=== PATIENT | male | born 1955 | race African-American/Black ===

== ENCOUNTER 2024-07-29 09:24 | Inpatient (IN) | payer OTHER, BC ==
[2024-07-29] MEDS: SODIUM CHLORIDE 0.9% 500 ML INFUS.BAG IV ONE (11:10)
[2024-07-29 11:22] LABS: HEMATOCRIT 35.1 % (35.4-49); MCH 32.9 pg (25.7-33.7); MCHC 34.3 g/dl (32.0-35.9); MEAN CELL VOLUME 95.9 fl (80-96); PLATELET COUNT 232 10^3/uL (134-434); RBC 3.67 M/mm3 (4.00-5.60); RDW 14.4 % (11.9-15.9); WHITE BLOOD COUNT 8.3 K/mm3 (4.0-10.0)
[2024-07-29 11:44] LABS: CHLORIDE 95 mmol/L (98-107); POTASSIUM 5.2 mmol/L (3.5-5.1); SODIUM 134 mmol/L (136-145)
[2024-07-29 11:47] LABS: ALBUMIN 2.8 g/dl (3.4-5.0); ANION GAP 9 mmol/L (4-13); BLOOD UREA NITROGEN 44.4 mg/dL (7-18); CO2 31 mmol/L (21-32); GLUCOSE,RANDOM 105 mg/dL (74-106); MAGNESIUM 2.3 mg/dL (1.8-2.4)
[2024-07-29 11:50] LABS: SGOT/AST 20 U/L (15-37); SGPT/ALT 30 U/L (13-61)
[2024-07-29 11:51] LABS: BILIRUBIN,TOTAL 0.3 mg/dL (0.2-1)
[2024-07-29 11:53] LABS: ALK PHOS 70 U/L (45-117)
[2024-07-29 12:27] LABS: CREATININE 9.8 mg/dL (0.55-1.3)
[2024-07-29 12:29] LABS: CALCIUM 14.4 mg/dL (8.5-10.1)
[2024-07-29 13:02] LABS: ANISOCYTOSIS 0; MACROCYTOSIS 0
[2024-07-29] MEDS: PANTOPRAZOLE SODIUM 40 MG VIAL IVPUSH SCH (14:15)
[2024-07-29] MEDS: SODIUM CHLORIDE 1,000 ML IV SCH (14:17)
[2024-07-29] MEDS: CALCITONIN - SALMON SYNTHETIC 400 UNIT/2 ML VIAL IM SCH (14:19)
[2024-07-29] MEDS: SODIUM ZIRCONIUM CYCLOSILICATE (LOKELMA) 5 GM PACKET PO SCH (17:25)
[2024-07-29] MEDS: DEXAMETHASONE SOD PHOSPHATE 10 MG/1 ML VIAL IVPB ONE (17:51)
[2024-07-29 18:19] LABS: EPI CELLS 4 /uL (0-25.1); HYALINE CASTS 1 /uL (0-3.1); URINE APPEARANCE CLEAR; URINE BACTERIA 4 /uL (0-1359); URINE BILIRUBIN NEGATIVE (NEGATIVE); URINE COLOR YELLOW; URINE GLUCOSE (UA) NEGATIVE (NEGATIVE); URINE KETONE NEGATIVE (NEGATIVE); URINE LEUK ESTERASE NEGATIVE (NEGATIVE); URINE NITRITE NEGATIVE (NEGATIVE); URINE PROTEIN NEGATIVE (NEGATIVE); URINE RBC 18 /uL (0-23.9); URINE UROBILINOGEN 0.2 mg/dL (0.2-1.0); URINE WBC 17 /uL (0-25.8)
[2024-07-30] MEDS: predniSONE 20 MG TABLET (UD) PO SCH (09:54)
[2024-07-30 11:24] LABS: HEMATOCRIT 34.1 % (35.4-49); HEMOGLOBIN 11.6 GM/dL (11.7-16.9); MCHC 33.9 g/dl (32.0-35.9); MEAN CELL VOLUME 97.3 fl (80-96); MEAN PLT VOLUME 8.2 fl (7.5-11.1); PLATELET COUNT 225 10^3/uL (134-434); RBC 3.51 M/mm3 (4.00-5.60); RDW 14.1 % (11.9-15.9); WHITE BLOOD COUNT 7.5 K/mm3 (4.0-10.0)
[2024-07-30 11:51] LABS: CHLORIDE 100 mmol/L (98-107); POTASSIUM 4.8 mmol/L (3.5-5.1); SODIUM 136 mmol/L (136-145)
[2024-07-30 11:54] LABS: ALBUMIN 2.5 g/dl (3.4-5.0); ANION GAP 13 mmol/L (4-13); BLOOD UREA NITROGEN 47.6 mg/dL (7-18); CO2 23 mmol/L (21-32); GLUCOSE,RANDOM 121 mg/dL (74-106)
[2024-07-30 11:56] LABS: CALCIUM 11.7 mg/dL (8.5-10.1)
[2024-07-30 11:57] LABS: BILIRUBIN,TOTAL 0.3 mg/dL (0.2-1); SGOT/AST 19 U/L (15-37); SGPT/ALT 28 U/L (13-61)
[2024-07-30 11:59] LABS: ALK PHOS 64 U/L (45-117); TOT PROT 9.2 g/dl (6.4-8.2)
[2024-07-30] MEDS: CYCLOPHOSPHAMIDE 50 MG CAPSULE PO ONE (17:58)
[2024-07-30] MEDS: BORTEZOMIB 2.5 MG/ML SUB-Q INJECTION SQ ONE (17:59)
[2024-07-30] MEDS: HEPARIN NA (PORCINE) 5,000 UNITS/ML 1ML VIAL SQ SCH (22:05)
[2024-07-31 08:07] LABS: PARATHYROID HORM INTACT 34 pg/mL (15-65)
[2024-07-31 08:22] LABS: HEMATOCRIT 29.8 % (35.4-49); HEMOGLOBIN 10.2 GM/dL (11.7-16.9); MCH 33.1 pg (25.7-33.7); MCHC 34.2 g/dl (32.0-35.9); MEAN CELL VOLUME 96.8 fl (80-96); MEAN PLT VOLUME 8.2 fl (7.5-11.1); PLATELET COUNT 189 10^3/uL (134-434); RBC 3.08 M/mm3 (4.00-5.60); WHITE BLOOD COUNT 12.2 K/mm3 (4.0-10.0)
[2024-07-31 08:37] LABS: POTASSIUM 4.5 mmol/L (3.5-5.1)
[2024-07-31 08:51] LABS: BLOOD UREA NITROGEN 48.3 mg/dL (7-18); CALCIUM 10.2 mg/dL (8.5-10.1)
[2024-07-31 08:52] LABS: ALBUMIN 2.1 g/dl (3.4-5.0); MAGNESIUM 1.5 mg/dL (1.8-2.4)
[2024-07-31 08:54] LABS: CREATININE 6.2 mg/dL (0.55-1.3)
[2024-07-31 08:56] LABS: BILIRUBIN,TOTAL 0.3 mg/dL (0.2-1); TOT PROT 7.7 g/dl (6.4-8.2)
[2024-07-31] MEDS: PANTOPRAZOLE 40 MG TABLET PO SCH (09:14)
[2024-07-31 10:53] LABS: INR 1.24 (0.83-1.09); PROTHROMBIN TIME (PATIENT) 13.6 SEC (9.7-13.0)
[2024-07-31] MEDS ORDERED: FENTANYL CITRATE/PF 50 MCG/ML VIAL ONE (12:01)
[2024-07-31] MEDS: SODIUM CHLORIDE 500 ML IV SCH (12:10)
[2024-07-31 14:47] VITALS: BMI 23.3
[2024-07-31] MEDS: MAGNESIUM 1GM/D5W 100ML - 100 ML IVPB IVPB ONE (14:51)
[2024-07-31 18:08] LABS: FREE KAPPA,SERUM 15.7 mg/L (3.3-19.4)
[2024-08-01 08:02] LABS: HEMATOCRIT 31.5 % (35.4-49); HEMOGLOBIN 10.4 GM/dL (11.7-16.9); LYMPH % 17.4 % (8-40); MCH 32.4 pg (25.7-33.7); MEAN CELL VOLUME 98.1 fl (80-96); MEAN PLT VOLUME 8.2 fl (7.5-11.1); MONO % 16.4 % (3.8-10.2); NEUT % 65.2 % (42.8-82.8); PLATELET COUNT 189 10^3/uL (134-434); RBC 3.21 M/mm3 (4.00-5.60); RDW 14.5 % (11.9-15.9); WHITE BLOOD COUNT 10.3 K/mm3 (4.0-10.0)
[2024-08-01 08:29] LABS: POTASSIUM 4.7 mmol/L (3.5-5.1)
[2024-08-01 08:33] LABS: CALCIUM 10.4 mg/dL (8.5-10.1)
[2024-08-01 08:34] LABS: ALBUMIN 2.2 g/dl (3.4-5.0); BLOOD UREA NITROGEN 45.4 mg/dL (7-18)
[2024-08-01 08:37] LABS: CREATININE 4.6 mg/dL (0.55-1.3)
[2024-08-01 08:38] LABS: BILIRUBIN,TOTAL 0.3 mg/dL (0.2-1); TOT PROT 7.6 g/dl (6.4-8.2)
[2024-08-01] MEDS: SODIUM CHLORIDE 1,000 ML IV SCH (19:15)
[2024-08-01 23:06] LABS: ANTIGLOMERULAR BASEMENT MEN.AB <0.2 units (0.0-0.9)
[2024-08-02] MEDS: SODIUM CHLORIDE 1,000 ML IV SCH (07:00)
[2024-08-02 11:19] LABS: BASO % 0.9 % (0-2.0); EOS % 1.2 % (0-4.5); HEMATOCRIT 32.4 % (35.4-49); HEMOGLOBIN 11.2 GM/dL (11.7-16.9); MCH 33.4 pg (25.7-33.7); MCHC 34.6 g/dl (32.0-35.9); MEAN CELL VOLUME 96.8 fl (80-96); MEAN PLT VOLUME 7.9 fl (7.5-11.1); MONO % 17.6 % (3.8-10.2); NEUT % 66.3 % (42.8-82.8); PLATELET COUNT 187 10^3/uL (134-434); RBC 3.35 M/mm3 (4.00-5.60); RDW 14.4 % (11.9-15.9); WHITE BLOOD COUNT 5.5 K/mm3 (4.0-10.0)
[2024-08-02 11:47] LABS: POTASSIUM 4.9 mmol/L (3.5-5.1)
[2024-08-02 11:49] LABS: CALCIUM 10.8 mg/dL (8.5-10.1)
[2024-08-02 11:50] LABS: ALBUMIN 2.4 g/dl (3.4-5.0); BLOOD UREA NITROGEN 33.5 mg/dL (7-18)
[2024-08-02 11:53] LABS: CREATININE 3.6 mg/dL (0.55-1.3)
[2024-08-02 11:54] LABS: BILIRUBIN,TOTAL 0.4 mg/dL (0.2-1); TOT PROT 8.2 g/dl (6.4-8.2)
[2024-08-02] MEDS: ACETAMINOPHEN 325 MG TABLET (FP) PO PRN (23:50)
[2024-08-03 02:21] LABS: HEMATOCRIT 28.9 % (35.4-49); HEMOGLOBIN 9.8 GM/dL (11.7-16.9); MCH 32.7 pg (25.7-33.7); MCHC 33.8 g/dl (32.0-35.9); MEAN CELL VOLUME 96.8 fl (80-96); MEAN PLT VOLUME 8.5 fl (7.5-11.1); PLATELET COUNT 176 10^3/uL (134-434); RBC 2.99 M/mm3 (4.00-5.60); RDW 14.2 % (11.9-15.9)
[2024-08-03 02:21] LABS: PH,URINE 5.5 (5.0-8.0); URINE APPEARANCE CLEAR; URINE BILIRUBIN NEGATIVE (NEGATIVE); URINE COLOR YELLOW; URINE GLUCOSE (UA) NEGATIVE (NEGATIVE); URINE KETONE NEGATIVE (NEGATIVE); URINE LEUK ESTERASE NEGATIVE (NEGATIVE); URINE NITRITE NEGATIVE (NEGATIVE); URINE PROTEIN NEGATIVE (NEGATIVE); URINE UROBILINOGEN 0.2 mg/dL (0.2-1.0)
[2024-08-03 09:36] LABS: HEMOGLOBIN 10.4 GM/dL (11.7-16.9); MCH 32.9 pg (25.7-33.7); MCHC 33.6 g/dl (32.0-35.9); MEAN CELL VOLUME 97.9 fl (80-96); MEAN PLT VOLUME 8.6 fl (7.5-11.1); PLATELET COUNT 200 10^3/uL (134-434); RBC 3.17 M/mm3 (4.00-5.60); RDW 13.9 % (11.9-15.9); WHITE BLOOD COUNT 5.7 K/mm3 (4.0-10.0)
[2024-08-03] MEDS: OSELTAMIVIR PHOSPHATE 30 MG CAPSULE PO SCH (09:48)
[2024-08-03 09:59] LABS: POTASSIUM 3.7 mmol/L (3.5-5.1)
[2024-08-03 10:05] LABS: ALBUMIN 2.4 g/dl (3.4-5.0); CALCIUM 9.9 mg/dL (8.5-10.1)
[2024-08-03 10:06] LABS: BLOOD UREA NITROGEN 28.8 mg/dL (7-18)
[2024-08-03 10:08] LABS: CREATININE 3.3 mg/dL (0.55-1.3)
[2024-08-03 10:09] LABS: BILIRUBIN,TOTAL 0.5 mg/dL (0.2-1); TOT PROT 7.9 g/dl (6.4-8.2)
[2024-08-03] MEDS: guaiFENesin 200 MG/10 ML 10 ML UNIT-DOSE CUPS PO PRN (19:59)
[2024-08-04 07:38] VITALS: RESP 18
[2024-08-04 07:40] LABS: HEMATOCRIT 29.4 % (35.4-49); MCH 32.9 pg (25.7-33.7); MEAN CELL VOLUME 96.8 fl (80-96); MEAN PLT VOLUME 7.9 fl (7.5-11.1); PLATELET COUNT 181 10^3/uL (134-434); RBC 3.04 M/mm3 (4.00-5.60); RDW 14.4 % (11.9-15.9); WHITE BLOOD COUNT 6.7 K/mm3 (4.0-10.0)
[2024-08-04 08:02] LABS: POTASSIUM 3.8 mmol/L (3.5-5.1)
[2024-08-04 08:08] LABS: CALCIUM 9.5 mg/dL (8.5-10.1)
[2024-08-04 08:09] LABS: ALBUMIN 2.2 g/dl (3.4-5.0); BLOOD UREA NITROGEN 26.5 mg/dL (7-18)
[2024-08-04 08:12] LABS: CREATININE 2.7 mg/dL (0.55-1.3)
[2024-08-04 08:14] LABS: BILIRUBIN,TOTAL 0.5 mg/dL (0.2-1); TOT PROT 7.5 g/dl (6.4-8.2)
[2024-08-04 10:12] LABS: ANISOCYTOSIS 1+; MACROCYTOSIS 1+
[2024-08-04 14:03] LABS: ANISOCYTOSIS 0; MACROCYTOSIS 0
[2024-08-04 16:07] LABS: C-ANCA <1:20 titer (Neg:<1:20)
[2024-08-05 08:22] LABS: HEMATOCRIT 31.3 % (35.4-49); HEMOGLOBIN 10.5 GM/dL (11.7-16.9); MCHC 33.6 g/dl (32.0-35.9); MEAN PLT VOLUME 8.1 fl (7.5-11.1); PLATELET COUNT 219 10^3/uL (134-434); RDW 14.2 % (11.9-15.9); WHITE BLOOD COUNT 5.6 K/mm3 (4.0-10.0)
[2024-08-05] MEDS: AMINO ACIDS/PROTEIN HYDROLYS 30 ML LIQUID.PKT PO SCH (09:00)
[2024-08-05 12:48] LABS: POTASSIUM 4.1 mmol/L (3.5-5.1)
[2024-08-05 12:49] LABS: CALCIUM 9.9 mg/dL (8.5-10.1)
[2024-08-05 12:50] LABS: ALBUMIN 2.5 g/dl (3.4-5.0); BLOOD UREA NITROGEN 21.8 mg/dL (7-18); MAGNESIUM 1.6 mg/dL (1.8-2.4)
[2024-08-05 12:53] LABS: CREATININE 2.5 mg/dL (0.55-1.3)
[2024-08-05 12:55] LABS: BILIRUBIN,TOTAL 0.4 mg/dL (0.2-1); TOT PROT 7.9 g/dl (6.4-8.2)
[2024-08-05 12:58] LABS: N-TERMINAL BNP 273.5 pg/ml (5-125)
[2024-08-05] MEDS: DEXAMETHASONE 4 MG TABLET (FP) PO ONE (15:56)
[2024-08-05] MEDS: BORTEZOMIB 2.5 MG/ML SUB-Q INJECTION SQ ONE (15:57)
[2024-08-05] MEDS: CYCLOPHOSPHAMIDE 50 MG CAPSULE PO ONE (15:58)
[2024-08-05] MEDS: MAGNESIUM 2GM/50ML STERILE WATER IVPB IVPB ONE (17:19)
[2024-08-06 09:09] LABS: HEMATOCRIT 29.5 % (35.4-49); MCH 33.1 pg (25.7-33.7); MCHC 33.9 g/dl (32.0-35.9); MEAN CELL VOLUME 97.8 fl (80-96); PLATELET COUNT 205 10^3/uL (134-434); RBC 3.01 M/mm3 (4.00-5.60); RDW 14.3 % (11.9-15.9); WHITE BLOOD COUNT 3.6 K/mm3 (4.0-10.0)
[2024-08-06 09:17] LABS: POTASSIUM 4.1 mmol/L (3.5-5.1)
[2024-08-06 09:25] LABS: CALCIUM 9.5 mg/dL (8.5-10.1)
[2024-08-06 09:26] LABS: BLOOD UREA NITROGEN 29.1 mg/dL (7-18)
[2024-08-06 09:29] LABS: CREATININE 1.9 mg/dL (0.55-1.3)
[2024-08-06 10:06] VITALS: BP 120/82; PULSE 92; TEMP 98.4
== END 2024-08-06 13:10 | disposition home or self-care (01) | DRG 841 ==
LOC: JER 09:24 → JERBED 10:13 → J6S 12:19 → J7W 07-30 08:33
PROVIDERS: ADMIT Family Medicine; ATTEND Family Medicine
PROC: 07DR3ZX Extraction of Iliac Bone Marrow, Percutaneous Approach, Diagnostic (ICD-10-PCS; principal; 2024-07-31)
DX: C90.00 Multiple myeloma not having achieved remission (principal); N17.9 Acute kidney failure, unspecified; E86.0 Dehydration; E83.52 Hypercalcemia; J10.1 Influenza due to other identified influenza virus with other respiratory manifestations; R73.03 Prediabetes; R11.2 Nausea with vomiting, unspecified
CPT/HCPCS: 0241U-QW; 20225; 36415; 71045-TC-FY; 71250-TC; 74176-TC; 76775-TC; 77012-TC; 80048; 80053; 81003; 82272; 82306; 82308; 82310; 82330; 83516; 83520; 83540; 83605; 83735; 83880; 83883; 83970; 84155; 84165; 85025; 85027; 85610; 85651; 86038; 86256; 86850; 86900; 86901; 87040; 87633; 88300-TC; 93005; 93010; 93306-TC; 97116-GP; 97161-GP; 99285-25; J1100; J1644; J9041